=== PATIENT | female | born 1970 | race Caucasian/White ===

== ENCOUNTER → 2018-05-11 | Outpatient (REF) | payer OTHER | LOC: M LAB REF 15:38 | PROVIDERS: ATTEND Physician Assistant | DX: R19.7 Diarrhea, unspecified (principal) ==

== ENCOUNTER 2019-12-28 10:35 | Emergency (ER) | payer OTHER ==
[~2019-12-28] VITALS: Ht 162.6 cm; Wt 117.2 kg
[2019-12-28] MEDS ORDERED: LOSA50TA88 (10:44)
[2019-12-28 12:15] LABS: BASO # 0.1 10^3/uL (0.0-0.2); BASO % 1.2 % (0.0-1.0); EOS # 0.1 10^3/uL (0.0-0.5); HEMATOCRIT 48.9 % (36.0-47.0); HEMOGLOBIN 15.6 g/dl (12.0-15.5); LYMPH # 1.4 10^3/uL (1.5-5.0); MEAN CORPUSCULAR HEMOGLOBIN 30.1 pg (27.0-33.0); MEAN CORPUSCULAR HGB CONC 31.9 g/dl (32.0-36.5); MEAN CORPUSCULAR VOLUME 94.2 fl (80.0-96.0); MONO # 0.4 10^3/uL (0.0-0.8); MONO % 6.7 % (0.0-5.0); NEUTROPHILS % 67.8 % (36.0-66.0); PLATELET COUNT, AUTOMATED 315 10^3/uL (150-450); RED BLOOD COUNT 5.19 10^6/uL (4.00-5.40); WHITE BLOOD COUNT 5.9 10^3/uL (4.0-10.0)
[2019-12-28 12:39] LABS: ALBUMIN 4.3 GM/DL (3.2-5.2); ALT/SGPT 28 U/L (12-78); BILIRUBIN,DIRECT 0.2 MG/DL (0.0-0.2); BILIRUBIN,TOTAL 0.9 MG/DL (0.2-1.0); LIPASE 59 U/L (73-393); TOTAL PROTEIN 7.8 GM/DL (6.4-8.2)
[2019-12-28 13:12] LABS: CK-MB VALUE MASS < 1.0 NG/ML (<3.6); CPK CREATINE PHOSPHOKINASE 38 U/L (26-192); MB/CK RELATIVE INDEX 2.63 (< OR =4); TROPONIN I < 0.02 NG/ML (< 0.10)
[2019-12-28] MEDS ORDERED: NS 1,000 ML IV ONE (13:15)
--- NOTE | 2019-12-28 13:17 | REP ---
INDICATION: RUQ pain into R shoulder. COMPARISON: None. TECHNIQUE: Real-time sonographic evaluation of right upper quadrant performed. FINDINGS: The gallbladder demonstrates no evidence of intraluminal sludge or calculi, wall thickening or pericholecystic fluid. There is no intrahepatic or extrahepatic biliary dilatation, common bile duct measures 4 mm in maximum diameter. Liver is somewhat increased in echotexture suggesting some degree of fibrofatty infiltration. There is a 1 cm cyst in the left lobe of the liver. The pancreas demonstrates homogeneous echotexture with no gross mass. The right kidney demonstrates no hydronephrosis, with a normal size of 11.3 cm in length. Pancreas is not well visualized due to overlying bowel gas.No free fluid is seen. IMPRESSION: No gallstones, biliary dilatation or free fluid. There appears to be mild fibrofatty infiltration of the liver. <Electronically signed by Alphonse Ken > 12/28/19 [id number]
[2019-12-28] MEDS ORDERED: KETOROLAC 30 MG/ML 1ML VIAL IV ONE (13:45)
[2019-12-28] MEDS ORDERED: ISOVUE-370 76% 100ML VIAL As Ordered ONE (13:56)
--- NOTE | 2019-12-28 14:41 | REP ---
INDICATION: pain from back into epigastric, intermittent. COMPARISON: None. TECHNIQUE: CT angiogram chest performed following the intravenous administration of 100 cc of Isovue 370. Sagittal and coronal reconstruction images are performed. FINDINGS: Lungs: Clear, no infiltrate or nodule. Mediastinum: No adenopathy. Pulmonary arteries: No evidence of pulmonary embolism. [place]: No adenopathy. Axilla: No adenopathy. Pleura: No effusion. Heart: Not enlarged. Thoracic aorta: No aneurysm or dissection. Visualized osseous structures: There are mild degenerative changes of the spine without compression deformity. IMPRESSION: No CT evidence of pulmonary embolism.No infiltrate seen. <Electronically signed by Alphonse Ken > 12/28/19 [id number]
--- NOTE | 2019-12-28 14:51 | REP ---
INDICATION: pain from back into epigastric, intermittent COMPARISON: None. TECHNIQUE: CT angiogram of the abdomen and pelvis was performed with intravenous administration of 100 cc of Isovue 370, without oral contrast. 3D MIP reconstruction images performed. FINDINGS: Abdominal aorta: No aneurysm or dissection. Lung bases: Unremarkable. Liver: 2 subcentimeter hypodensities seen both in the right and left lobes of the liver, likely representing benign cysts or hemangiomas. Gallbladder: Unremarkable. Spleen: Normal. Adrenals: Normal. Pancreas: Normal. Kidneys: Normal. Small and large bowel: There are few sigmoid and left colonic diverticula present without acute diverticulitis. Free fluid: None. Adenopathy: None. Appendix: Not inflamed. Pelvis: No mass. Osseous structures: Unremarkable. IMPRESSION: No evidence of aortic aneurysm or dissection. No other acute finding. <Electronically signed by Alphonse Ken > 12/28/19 [id number]
[2019-12-28 15:05] VITALS: BP 176/92
--- NOTE | 2019-12-28 21:12 | ECGEPIP ---
[facility] - ED Test Date: 2019-12-28 Pat Name: LARRY ATKINSON Department: Room: - Gender: Female Rn Research: : 1970 Requested By: SHEYLA Nova PA-C Order Number: [id number] Reading MD: Kirill Mora Measurements Intervals [place] Rate: 57 P: 7 MA: 155 QRS: -8 QRSD: 98 T: 16 QT: 451 QTc: 443 Interpretive Statements SINUS BRADYCARDIA Similar to tracing done 07-01-15 Electronically Signed on 12-28-2019 21:11:52 EST by Kirill Mora
== END 2019-12-28 15:41 | disposition home or self-care (01) ==
LOC: M ED 10:35
DX: R10.9 Unspecified abdominal pain (principal); R00.1 Bradycardia, unspecified; I10 Essential (primary) hypertension; Z79.899 Other long term (current) drug therapy; Z88.8 Allergy status to other drugs, medicaments and biological substances; Z87.828 Personal history of other (healed) physical injury and trauma
CPT/HCPCS: 71275; 74174; 76705; 80047; 80076; 81001; 82550; 82553; 83690; 84484; 84702; 85025; 93005; 96374; 99284; J1885; Q9967

== ENCOUNTER → 2022-03-11 | Outpatient (CLI) | payer OTHER ==
[~2022-03-11] MED LIST: LOSA50TA28
[2022-03-11 10:55] LABS: ALBUMIN 3.9 G/DL (3.2-5.2); ALKALINE PHOSPHATASE 81 U/L (46-116); ALT/SGPT 26 U/L (7.0-40); AST/SGOT 20 U/L (<34); BILIRUBIN,TOTAL 0.9 MG/DL (0.3-1.2); BLOOD UREA NITROGEN 10 MG/DL (9-23); CALCIUM LEVEL 9.3 MG/DL (8.5-10.1); CARBON DIOXIDE LEVEL 30 MMOL/L (20-31); CHLORIDE LEVEL 106 MMOL/L (98-107); CHOLESTEROL LEVEL 156 MG/DL (<200); CHOLESTEROL RISK RATIO 3.13 (<5); CREATININE FOR GFR 0.68 MG/DL (0.55-1.30); GLOMERULAR FILTRATION RATE > 60.0 (>51); GLUCOSE, FASTING 89 MG/DL (60-100); HDL CHOLESTEROL 49.7 MG/DL (>40); LDL CHOLESTEROL 91.5 MG/DL (<100); NON-HDL-C 106 MG/DL; POTASSIUM SERUM 4.4 MMOL/L (3.5-5.1); SODIUM LEVEL 141 MMOL/L (136-145); TOTAL PROTEIN 6.7 G/DL (5.7-8.2); TRIGLYCERIDES LEVEL 74 MG/DL (<150)
[2022-03-11 10:58] LABS: BASO # 0.1 10^3/uL (0.0-0.2); BASO % 1.2 % (0.0-1.0); EOS # 0.1 10^3/uL (0.0-0.5); EOS % 1.5 % (0.0-3.0); FREE T4 1.17 NG/DL (0.89-1.76); HEMOGLOBIN 13.8 g/dl (12.0-15.5); LYMPH # 1.4 10^3/uL (1.5-5.0); LYMPH % 23.6 % (24.0-44.0); MEAN CORPUSCULAR HGB CONC 31.4 g/dl (32.0-36.5); MEAN CORPUSCULAR VOLUME 95.7 fl (80.0-96.0); MONO # 0.6 10^3/uL (0.0-0.8); MONO % 9.9 % (2.0-8.0); NEUTROPHILS # 3.7 10^3/uL (1.5-8.5); NEUTROPHILS % 63.5 % (36.0-66.0); PLATELET COUNT, AUTOMATED 238 10^3/uL (150-450); WHITE BLOOD COUNT 5.9 10^3/uL (4.0-10.0)
[2022-03-11 10:59] LABS: FOLLICLE STIMULATING HORMONE 50.8 mIU/ML; LUTEINIZING HORMONE 35.3 mIU/ML; THYROID STIMULATING HORMONE 3.192 uIU/ML (0.55-4.78)
[2022-03-11 11:22] LABS: HEMOGLOBIN A1c 4.8 % (4.0-6.0)
== END ==
LOC: M PLALAB 08:06
PROVIDERS: ATTEND Family Medicine
DX: Z13.220 Encounter for screening for lipoid disorders (principal); Z13.29 Encounter for screening for other suspected endocrine disorder; Z13.0 Encounter for screening for diseases of the blood and blood-forming organs and certain disorders involving the immune mechanism

== ENCOUNTER 2022-10-30 09:04 | Day surgery (SDC) | payer OTHER ==
[~2022-10-30] VITALS: Ht 162.6 cm; Wt 113.4 kg
[~2022-10-30 09:04] MED LIST changes: +CODCAP6 PO; +MULT1TAB7 PO; +NS 1,000 ML IV ONE; +PROBCAP14 PO; +[UNRECOGNIZED DRUG - OTHER] PO
[2022-10-30] MEDS ORDERED: LIDOCAINE 2% 100MG/5ML SDV (FOR ANES.) As Ordered ONE (09:59)
[2022-10-30] MEDS ORDERED: propofoL 200 MG/20 ML VIAL As Ordered ONE (09:59)
[2022-10-30 10:44] VITALS: TEMP 97.5
[2022-10-30 11:05] VITALS: BP 150/74; O2SAT 96
== END 2022-10-30 11:15 | disposition home or self-care (01) ==
LOC: M OPP 09:04
PROVIDERS: ATTEND Internal Medicine Gastroenterology
DX: Z12.11 Encounter for screening for malignant neoplasm of colon (principal); K64.0 First degree hemorrhoids; I10 Essential (primary) hypertension; K21.9 Gastro-esophageal reflux disease without esophagitis; Z88.8 Allergy status to other drugs, medicaments and biological substances; Z79.899 Other long term (current) drug therapy

== ENCOUNTER 2023-03-01 12:18 | Emergency (ER) | payer OTHER ==
[~2023-03-01] VITALS: Ht 162.6 cm; Wt 116.2 kg
[~2023-03-01 12:18] MED LIST changes: -NS 1,000 ML IV ONE
[2023-03-01 12:20] VITALS: BP 180/90; TEMP 98.6; O2SAT 97
== END 2023-03-01 14:34 | disposition home or self-care (01) ==
LOC: M ED 12:18
DX: M25.562 Pain in left knee (principal); I10 Essential (primary) hypertension; Z88.8 Allergy status to other drugs, medicaments and biological substances

== ENCOUNTER → 2023-03-04 | Outpatient (CLI) | payer OTHER | LOC: M PLALAB 15:17 | PROVIDERS: ATTEND Nurse Practitioner Adult Health | DX: M17.0 Bilateral primary osteoarthritis of knee (principal) ==

== ENCOUNTER → 2023-09-12 | Outpatient (CLI) | payer OTHER ==
[2023-09-12 10:00] LABS: C REACTIVE PROTEIN QUANTITATIV < 0.40 MG/DL (<1.0)
[2023-09-12 10:02] LABS: ALBUMIN 3.9 G/DL (3.2-5.2); ALKALINE PHOSPHATASE 100 U/L (46-116); ALT/SGPT 23 U/L (7.0-40); AST/SGOT 10 U/L (<34); BILIRUBIN,TOTAL 0.8 MG/DL (0.3-1.2); BLOOD UREA NITROGEN 6 MG/DL (9-23); CALCIUM LEVEL 9.5 MG/DL (8.5-10.1); CARBON DIOXIDE LEVEL 30 MMOL/L (20-31); CHLORIDE LEVEL 106 MMOL/L (98-107); CREATININE FOR GFR 0.59 MG/DL (0.55-1.30); GLOMERULAR FILTRATION RATE > 60.0 (>51); GLUCOSE, FASTING 99 MG/DL (60-100); POTASSIUM SERUM 4.5 MMOL/L (3.5-5.1); RHEUMATOID FACTOR QUANT < 3.5 IU/ML (<14); SODIUM LEVEL 141 MMOL/L (136-145); TOTAL PROTEIN 6.7 G/DL (5.7-8.2)
[2023-09-12 10:05] LABS: THYROID STIMULATING HORMONE 2.599 uIU/ML (0.55-4.78)
[2023-09-12 10:06] LABS: BASO # 0.1 10^3/uL (0.0-0.2); BASO % 1.1 % (0.0-1.0); EOS # 0.1 10^3/uL (0.0-0.5); EOS % 2.3 % (0.0-3.0); HEMATOCRIT 44.6 % (36.0-47.0); HEMOGLOBIN 14.2 g/dl (12.0-15.5); LYMPH # 1.6 10^3/uL (1.5-5.0); LYMPH % 29.2 % (24.0-44.0); MEAN CORPUSCULAR HEMOGLOBIN 30.1 pg (27.0-33.0); MEAN CORPUSCULAR HGB CONC 31.8 g/dl (32.0-36.5); MEAN CORPUSCULAR VOLUME 94.5 fl (80.0-96.0); MONO # 0.4 10^3/uL (0.0-0.8); MONO % 7.5 % (2.0-8.0); NEUTROPHILS # 3.3 10^3/uL (1.5-8.5); NEUTROPHILS % 58.5 % (36.0-66.0); PLATELET COUNT, AUTOMATED 275 10^3/uL (150-450); RED BLOOD COUNT 4.72 10^6/uL (4.00-5.40); WHITE BLOOD COUNT 5.6 10^3/uL (4.0-10.0)
[2023-09-12 10:38] LABS: ERYTHROCYTE SEDIMENTATION RATE 21 mm/hr (0-30)
[2023-09-15 17:17] LABS: ANA SCREEN, IFA NEGATIVE (NEGATIVE)
[2023-09-16 02:07] LABS: CYCLIC CITRULLINATED PEPTIDE < 16 UNITS (<20)
[2023-09-16 20:32] LABS: LYME TOTAL ANTIBODY CIA <= 0.90 Index (<=0.90)
== END ==
LOC: M PLALAB 08:24
PROVIDERS: ATTEND Nurse Practitioner Adult Health
DX: M25.549 Pain in joints of unspecified hand (principal)

== ENCOUNTER → 2023-12-25 | Outpatient (REF) | payer OTHER ==
[2023-12-29 07:01] LABS: HPV APTIMA Not Detected (Not Detected)
== END ==
LOC: M SFHCWAGY 17:50
PROVIDERS: ATTEND Nurse Practitioner Family
DX: Z12.4 Encounter for screening for malignant neoplasm of cervix (principal)
CPT/HCPCS: 87624; G0123